=== PATIENT | female | born 2000 | race Caucasian/White ===

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

== ENCOUNTER → 2021-09-24 11:58 | Outpatient (CLI) | payer SELFPAY ==
[2021-09-24 14:10] LABS: Absolute Lymphocyte Count 0.54 X10^3/uL (0.83-4.51); Absolute Neutrophil Count 6.7 X10^3/uL (2.0-7.7); Basophil# 0.04 X10^3/uL; Basophil% 0.5 % (0-1); Eosinophil# 0.08 X10^3/uL; Hematocrit 34.8 % (37-47); Hemoglobin 10.1 g/dL (12.0-15.0); Lymphocyte # 0.54 X10^3/ul (0.83-4.51); Lymphocyte % 6.9 % (19-41); Mean Corpuscular Hgb 20.6 pg (27.0-32.0); Monocyte% 5.1 % (0-10); NRBC Flagged by Analyzer 0 % (0-5); Neutrophil # 6.71 X10^3/uL (2.7-7.7); Neutrophil % 86.2 % (47-70); POSITIVE DIFFERENTIAL YES; Platelet Count 216 K/mm3 (150-450); RBC Distribution Width CV 15.9 % (11.6-14.6); RBC Distribution Width SD 40.8 fl (35.1-43.9); White Blood Count 7.8 K/mm3 (4.4-11.0)
[2021-09-24 14:15] LABS: Differential Indicated SCAN CRITERIA MET
[2021-09-24 14:40] LABS: Hypochromasia 1+; Microcytosis 1+
[2021-09-24 14:56] LABS: Free T3 2.7 pg/mL (2.18-3.98); T4 Free Direct 0.94 ng/dL (0.76-1.46); Thyroid Stim Hormone (TSH) 0.75 uIU/mL (0.358-3.74)
== END ==
PROVIDERS: PCP Family Medicine; Referring Provider Family Medicine; Visit Provider Nurse Practitioner Family
DX: E03.9 Hypothyroidism, unspecified (principal); N92.0 Excessive and frequent menstruation with regular cycle
CPT/HCPCS: 36415; 84439; 84443; 84481; 85025

== ENCOUNTER 2021-12-24 14:45 | Outpatient (CLI) | payer SELFPAY ==
[2021-12-24 18:33] LABS: Thyroid Stim Hormone (TSH) 0.71 uIU/mL (0.358-3.74)
== END 2021-12-24 23:59 | disposition home or self-care (01) ==
PROVIDERS: PCP Family Medicine; Referring Provider Family Medicine; Visit Provider Family Medicine
DX: E03.9 Hypothyroidism, unspecified (principal)
CPT/HCPCS: 36415; 84443

== ENCOUNTER 2022-09-14 08:00 | Outpatient (RCR) | payer MEDICAID, SELFPAY ==
--- NOTE | 2022-09-14 10:05 | BH.SGPN.GN ---
Behaviors/Verbalizations/Mental Status: []Pt alert and oriented, casually dressed and groomed. Eye contact good. Motor activity appropriate. Speech within normal limits. Affect congruent, mood anxious and depressed. Thoughts linear, logical, no signs of hallucinations or delusions. Client Response/Progress/Benefit: []Pt new to IOP tx, responded well to session AEB contributing some to discussion, taking notes, and listening attentively to others. Group discussed the benefits of managed anger and anger as a secondary emotion. Pt completed worksheet on anger triggers and personal warning signs of anger. Pt identified their biggest triggers as feeling overstimulated, personal boundaries being violated, and when others talk too loudly. Appeared to benefit from increased knowledge of the anger cycle as well as personal triggers. Will continue IOP tx to improve mood stability, reduce depression, and reinforce use of healthy coping skills. Narrative Note: []
--- NOTE | 2022-09-14 11:10 | BH.SGPN.GN ---
Behaviors/Verbalizations/Mental Status: []Client alert and oriented, casually dressed and groomed. Eye contact fair. Motor activity appropriate. Speech within normal limits. Affect constricted, mood anxious. Thoughts linear, logical, no signs of hallucinations or delusions. Client Response/Progress/Benefit: []Pt was engaged throughout AEB contributing to group discussion and self-reflection. Group finished processing cues to anger worksheet. Pt contributed as group brainstormed healthy coping skills for better managing anger which included: music, walking/exercise, changing the environment, communicating with supports, and journaling. Pt reported she would be willing to start identifying her anger cycle to increase insight and improve her anger responses. Pt appeared to benefit from identifying different techniques to manage anger as well as gaining awareness of potential consequences of unmanaged anger. Pt's first day in IOP. Will continue IOP tx to improve daily functioning, increase healthy coping, and prevent decompensation.
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
--- NOTE | 2022-09-15 11:10 | BH.SGPN.GN ---
Behaviors/Verbalizations/Mental Status: [] Client alert and oriented, casually dressed and groomed. Eye contact fair.. Motor activity appropriate. Speech within normal limits. Affect constricted, mood dysthymic and anxious. Thoughts linear, logical, no signs of hallucinations or delusions. Client Response/Progress/Benefit: [] Client was an active participant in group discussions and activity. Attentive during psychoeducation. Client along with peers were able to identify several negatives on the picture given to the group. Client and peers also identified positives in the picture and made the connect that finding positives is much more difficult. Interactive discussion on the definition of perspective, how perspective is formed, and why perspective is important in treatment. Client along with peers also identified that perspective can either motivate and encourage treatment or be a barrier to receiving help. Client shared in her current perspective she believes the Bonnie is built against her which makes her feel hopeless about the future. Stated she also has the perspective that others are easily judgemental, which she reported makes her feel she can never do anything right. Will continue in IOP to improve functioning, increase healthy coping skills, build confidence, and prevent decompensation.
--- NOTE | 2022-09-15 11:16 | BH.SGPN.GN ---
Behaviors/Verbalizations/Mental Status: []Client alert and oriented, casually dressed and groomed. Eye contact good. Motor activity appropriate. Speech within normal limits. Affect congruent, mood anxious and depressed. Thoughts linear, logical, no signs of hallucinations or delusions Client Response/Progress/Benefit: []Client was attentive and contributed in small and larger group discussion. Client completed strengths exploration worksheet and identified personal strengths of curiosity, humor, patience, and open mindedness. With some assistance, Client able to acknowledge how these strengths are helping her and can continue to help client in their mental health journey. Shared wanting to focus on using positive affirmations to reinforce strength of love, specifically self-love. Benefited from identifying personal strengths and strategies for enhancing use of identified strengths. Client to continue IOP tx to promote use of healthy coping skills, reduce depression, and prevent decompensation. Narrative Note: []
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
[2022-09-15 11:53] VITALS: BP 140/83; PULSE 79
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
--- NOTE | 2022-09-15 12:10 | BH.DR.ITP ---
Initial Treatment Plan Patient Information Visit Information: ADMISSION DATE: EXPECTED LOS: 4-6 weeks Problems/Symptoms Problem #1:: depression Symptom:: Sadness, hopelessness, worthlessness, anhedonia, biological disruption of sleep, fatigue, decreased concentration, guilt, passive thoughts of , fleeting, passive suicidal ideation Problem #2:: Anxiety Symptom:: Worry, rumination
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
--- NOTE | 2022-09-16 09:01 | BH.SGPN.GN ---
Behaviors/Verbalizations/Mental Status: []Eye contact good, casually dressed, motor activity appropriate, speech normal rate and tone, mood anxious and depressed, constricted affect, thoughts linear and intact, no evidence of delusions or hallucinations. Reviewed pt's symptom tracker, suicidal ideation within pt baseline, denies any current plan, or intent as of this date 09/16/22. Client Response/Progress/Benefit: []Pt responded well to session, attentive and willing to share with the group. Pt reports feeling ?exhausted this morning. Shared this is due to struggling with staying up too late. Expressed difficulties adjusting to an earlier morning routine since beginning IOP tx. Receptive of psychoeducation on healthy sleep hygiene. Pt able to identify 2 mental health wins which included completing her morning hygiene routine despite running late, as well as continuing to spend time with her pets which help to improve her mood. Pt identified current stressor as an upcoming test for her job that she has been putting off studying for. Receptive of study tips provided by the group. Appearing to benefit from supportive feedback and reflecting on mental health wins, as well as skills to maintain progress. Pt to continue IOP tx to further improve healthy coping repertoire, improve mood, and prevent decompensation. Narrative Note: []
--- NOTE | 2022-09-16 10:01 | BH.SGPN.GN ---
Behaviors/Verbalizations/Mental Status: [] Client alert and oriented, casually dressed and groomed. Eye contact good. Motor activity appropriate. Speech within normal limits. Affect constricted, mood euthymic and anxious. Thoughts linear, logical, no signs of hallucinations or delusions. Client Response/Progress/Benefit: [] Client responded well to session AEB taking notes throughout and listening attentively to others. Client was attentive throughout group activity discussing famous individuals and how they overcame failure to be successful. Client helped group identify how fear of failure can impact mental health and relationships. Client discussed ways that FOF keep us from progressing towards goals we set for ourselves. Client participated in experiential activity, working with group members to problem solve. Appeared to benefit from increased knowledge of fear of failure. Will continue IOP tx to improve self-confidence, reduce distorted thinking patterns, and reduce avoidance. Narrative Note: []
--- NOTE | 2022-09-16 11:01 | BH.SGPN.GN ---
Behaviors/Verbalizations/Mental Status: [] Client alert and oriented, casually dressed and groomed. Eye contact good. Motor activity appropriate. Speech within normal limits. Affect constricted, mood euthymic. Thoughts linear, logical, no signs of hallucinations or delusions. Client Response/Progress/Benefit: [] Client responded well to session, engaged in the experiential activity and attentive throughout group processing. Client completed fear of failure worksheet and was able to identify thoughts and behaviors that reinforce personal fear of failure including family, anxiety, trauma, and societal expectations. Client participated in small group discussion regarding strategies to overcome fear of failure. Identified wanting to work on journaling taking baby steps, and making check points in progress. Appeared to benefit from increased knowledge of strategies to combat fear of failure and gaining self-awareness. Client will continue IOP tx to increase self worth and to reduce anxiety and avoidance. Narrative Note: []
--- NOTE | 2022-09-21 09:00 | BH.SGPN.GN ---
Behaviors/Verbalizations/Mental Status: []Eye contact is good. Motor activity is appropriate. Appearance is casual. Speech is Appropriate. Mood is anxious. Affect is flat. Thoughts are linear and logical. No evidence of psychosis. Reviewed daily check in sheet and pt's scores were within pt's baseline. Client Response/Progress/Benefit: [] Pt responded well to session, quiet, but sharing when prompted. Pt reports feeling disappointed in herself this morning as pt waited until the last minute to complete a paper. Pt shared she often procrastinates which then leads to an increase in anxiety and then frustration. Pt stated being done with her final is a positive, but pt is still exhausted from yesterday. Pt identified another win as not spending money this morning when she wanted to. 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 Pt appeared to benefit from connecting with peers and reflecting on her wins. Pt will continue IOP tx to prevent decompensation, increase use of healthy coping skills, and improve distress tolerance. Narrative Note: []
--- NOTE | 2022-09-21 10:10 | BH.SGPN.GN ---
Behaviors/Verbalizations/Mental Status: [] Eye contact is poor. Motor activity is appropriate. Appearance is casual. Speech is Appropriate. Mood is depressed. Affect is flat. Thoughts are linear and logical. No evidence of psychosis. Client Response/Progress/Benefit: [] Pt had limited participation in group discussions. Active participant in experiential activity. Attentive during psychoeducation. Attentive as peers shared types of social supports which included; family, friends, PCP, mental health providers, support groups, pets, ourselves, community classes, etc. Attentive as group identified mental health benefits of social support which patient and group identified as; it can help with emotional release, help one to feel heard, validation, distraction, they can encourage us, provide motivation, provide accountability, and boost our mood. Attentive as peers worked together to identify obstacles to utilizing support which included; feeling like one doesn't deserve support, past negative experiences, cognitive distortions, and avoidance/mood. Benefited from increased awareness of mental health benefits of social support and obstacles that prevent one from utilizing support. Will continue in IOP to maintain safety, increase healthy coping skills, and prevent decompensation. Narrative Note: []
--- NOTE | 2022-09-22 09:05 | BH.SGPN.GN ---
Behaviors/Verbalizations/Mental Status: [] Eye contact is good. Motor activity is appropriate. Appearance is casual. Speech is Appropriate. Mood is depressed. Affect is flat. Thoughts are linear and logical. No evidence of psychosis. Reviewed daily check in sheet and pt reports 3/5 for suicidal ideation and 1/5 for intent. Will meet with counselor for risk screen. Client Response/Progress/Benefit: [] Pt participated when prompted. Disengaged with group with poor eye contact. Daily symptom tracker notes 3/5 for depression and irritability. 2/5 for self-harm urges. Shared with the group that she has been struggling this week, however a win for today was ?brushing my teeth?. Shared struggles with completing ADLs. . Believes that she is ?dissociating? more than usual and is sleeping more as well. Mentioned that trigger is her schoolwork as this week is finals week. Group provided feedback on grounding and mindfulness skills which can help with dissociation thoughts which was beneficial. Will continue in IOP to maintain safety, prevent decompensation, and stabilize mood. ? Narrative Note: []
--- NOTE | 2022-09-22 10:05 | BH.COMM ---
Communication Note - Communication with Client Communication Note: This nurse met with client at this time to discuss lab results, low vitamin D and elevated TSH. Discussed Dr. Wong reviewed values and was ordering Vitamin D supplement. Discussed TSH being elevated and client being ordered Levothyroxine with low compliance. Discussed the possible health dangers of untreated hypothyroidism (heart problems, neuropathy, infertility, coma) and handout given. Client voices understanding of importance of taking medications and denies questions. Discussed following up with her PCP about TSH and Vitamin D after she is finished with IOP.
--- NOTE | 2022-09-22 10:10 | BH.SGPN.GN ---
Behaviors/Verbalizations/Mental Status: []Pt alert and oriented, neatly dressed and groomed. Eye contact good. Motor activity appropriate. Speech within normal limits. Affect flat, mood exhausted. Thoughts linear, logical, no signs of hallucinations or delusions. Client Response/Progress/Benefit: []Pt was an engaged participant in group discussions. Participated with peers in experiential activity. Pt participated in an interactive discussion with peers in which they worked together to define what coping skills are. Group then identified unhealthy coping skills which included; isolating, sleeping to avoid, drugs and alcohol, and constant distractions. Pt displayed insight that she struggles with turning to quick fixes like shopping and ?chronic distractions? to avoid problems. Reflected that this adds more stress to pt?s life and worsens mental health symptoms. Benefited from increased awareness and education the benefits of having a healthy coping repertoire and consequences of unhealthy coping on mental health and relationships. Will continue IOP tx to prevent decompensation, reduce avoidance, and increase knowledge of healthy coping skills. ? Narrative Note: []
--- NOTE | 2022-09-22 11:10 | BH.SGPN.GN ---
Behaviors/Verbalizations/Mental Status: []Client alert and oriented, casually dressed and groomed. Eye contact fair. Motor activity appropriate. Speech within normal limits, quiet. Affect constricted, mood anxious. Thoughts linear, logical, no signs of hallucinations or delusions Client Response/Progress/Benefit: []Client responded well to session, taking notes and contributing. Group discussed the different categories of coping skills which included distraction, emotional release, grounding, self-love, and thought challenging. Client participated in creating a coping skills ?menu? from the five categories of coping skills. Client's coping skill menu included: journaling, 5 senses, squeezing things, exercising, and redirecting thoughts. Appeared to benefit from increasing repertoire of healthy coping skills. Will continue IOP to increase healthy coping, increase confidence, and prevent decompensation.
--- NOTE | 2022-09-23 11:15 | BH.SGPN.GN ---
Behaviors/Verbalizations/Mental Status: []Client alert and oriented, casually dressed and groomed. Eye contact fair. Motor activity appropriate. Speech within normal limits. Affect constricted, mood anxious. Thoughts linear, logical, no signs of hallucinations or delusions. Client Response/Progress/Benefit: []Client responded well to session, taking notes and participating in worksheet discussion. Client connected with the zones of action/change and reported that making sustainable change comes from stepping out of one?s comfort zone into the learning zone. Client set a goal to gain control over boredom/not having any hobbies. Client reported her goal is to go to gym for one hour at least once a week. Client identified telling someone about goal, getting gym outfits, and writing in journal as supports needed to help her accomplish goal. Appeared to benefit from identifying a small goal to benefit mental health. Will continue IOP tx to increase healthy coping, decrease depression, and prevent decompensation.
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
--- NOTE | 2022-09-27 09:00 | BH.SGPN.GN ---
Behaviors/Verbalizations/Mental Status: []Pt alert and oriented, casually dressed and groomed. Eye contact good. Motor activity appropriate. Speech within normal limits. Affect congruent, mood euthymic and anxious. Thoughts linear, logical, no signs of hallucinations or delusions. Reviewed pt?s symptom tracker, no risk for suicidal ideation, plan, or intent as of 09/27/22 Client Response/Progress/Benefit: []Pt responded well to session, attentive and receptive to feedback. Pt reports feeling cautiously hopeful this morning as pt is stressed about her grades from her finals, but she is happy that she has time off from school. Pt shared she wants to get into exercising while on winter break, but she has a lot of fear of judgement. The group helped challenge pt's perspective and gave ideas for exercise. Pt appeared to benefit from feedback and shared willingness to try ideas. Pt will continue IOP tx to prevent decompensation, improve daily functioning, and reduce avoidance. Narrative Note: []
--- NOTE | 2022-09-27 10:15 | BH.SGPN.GN ---
Behaviors/Verbalizations/Mental Status: []Client alert and oriented, casually dressed and groomed. Eye contact good. Motor activity appropriate. Speech within normal limits. Affect congruent, mood anxious, depressed. Thoughts linear, logical, no signs of hallucinations or delusions. Client Response/Progress/Benefit: []Client receptive to session AEB contributing some to discussion, which is progress for pt, as well listening attentively to others. Taking notes. Worked with group to brainstorm the positive and negative aspects of stress on physical and mental health. Group did well to identify the benefits of stress as well as the impact of distress on performance, relationships, and mental health. 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 Client reports when the stress overflows client reacts with increased sleep, irritability, disassociating, and increased spending. Client seemed to benefit from increased awareness of current stressors and impact stress has on mental health. Recommended to continue IOP tx to stabilize moods, improve stress management, and prevent decompensation. Narrative Note: []
--- NOTE | 2022-09-27 11:15 | BH.SGPN.GN ---
Behaviors/Verbalizations/Mental Status: []Pt alert and oriented, casually dressed and groomed. Eye contact good. Motor activity appropriate. Speech within normal limits. Affect constricted, mood anxious. Thoughts linear, logical, no signs of hallucinations or delusions. Client Response/Progress/Benefit: []Pt participated at times during group discussions. Attentive during psychoeducation on the 4 A's of Coping with Stress (Avoid, Alter, Adapt, Accept). Participated in experiential activity in which group members had to utilize stress management skills in the moment. Pt did well to problem-solve and express ideas to peers. Pt engaged in review of the 4 A?s and picked wanting to work on adapting her outlook by realizing that not everyone hates her. Benefited from processing in the moment stress management strategies and identifying new ways to cope with stress. Will continue in IOP tx to prevent decompensation, improve self-worth, and increase use of healthy coping skills.
--- NOTE | 2022-09-28 09:05 | BH.SGPN.GN ---
Behaviors/Verbalizations/Mental Status: [] Eye contact is poor. Motor activity is appropriate. Appearance is casual. Speech is Appropriate. Mood is depressed. Affect is congruent. Thoughts are linear and logical. No evidence of psychosis. Reviewed daily check in sheet and pt reports 2/5 for suicidal ideations and 0/5 for intent. Client Response/Progress/Benefit: [] Pt participated when prompted. Attentive. Daily symptom tracker notes 3/5 for depression and 2/5 for self-harm urges. Mental health win was stepping outside her comfort zone at the gym yesterday. Has returned to exercise which she hopes will improve her mood. Emotion for today is vibing. She is stressed about working this evening and shared a little about her job. Pt's check-in was mainly superficial today. Benefited from group support, encouragement, and feedback. Will continue in IOP to maintain safety, prevent decompensation, and to increase healthy coping. Narrative Note: []
--- NOTE | 2022-09-28 10:15 | BH.SGPN.GN ---
Behaviors/Verbalizations/Mental Status: []Pt alert and oriented, casually dressed and groomed. Eye contact good. Motor activity appropriate. Speech within normal limits. Affect congruent, mood euthymic and tired. Thoughts linear, logical, no signs of hallucinations or delusions. Client Response/Progress/Benefit: []Pt participated in group discussion. Group worked together to identify benefits of healthy relationships which included improves mental health, encouragement, motivation, accountability, validation, connection, someone to share experiences with, and support during challenges. Pt shared she has personally found a healthy relationship, ?but it took a lot of work.? Group identified factors that lead to unhealthy relationships which included financial stress, lack of communication, and ?one person having issues they won?t address.? Actively participated in group experiential activity and effectively communicated with peers. Benefited from increased insight and awareness of benefits of healthy relationships and factors that contribute to unhealthy relationships. Will continue in IOP to promote mood stability, reduce avoidance, and improve self-compassion. Narrative Note: []
--- NOTE | 2022-09-28 14:18 | BH.MDN ---
Multi-Disciplinary Note - Note 45-min Individual Time Started:: 11:19 Date: 09/28/22 Purpose of session/treatment goals addressed:: To work on goal #2 of pt's tx plan. Eye Contact:: Good Motor Activity:: Appropriate Appearance:: Casual Speech:: Appropriate Mood:: Anxious, Dysthymic Affect:: Congruent Thoughts:: Linear, Logical, No evidence of hallucinations/delusions noted Staff Interventions:: psychoeducation on: - exposure therapy in addressing and combating anxiety maintenance cycles, CBT techniques, strengths perspective, taught coping skills Client Response:: Pt responded well to session, open to meeting therapist. Pt shared she feels a lot less stressed now that finals are over and she is able to spend less time ruminating on school assignments. Pt discussed that her anxiety is often worse when in situations she feels she needs to perform well, such as on school assignments and in social settings. Pt reports she worries about messing up, looking like she doesn?t know what she?s doing, and saying something ?weird? and ultimately puts off engaging with others or completing her assignments as a result. Able to recognize this reinforces fears that others will think she is ?lazy? or ?doesn?t care?. Expressed wanting to work on breaking the anxiety maintenance cycle and shared finding success in completing her recent goal of getting back into going to the gym. Pt shared doing the ?anxious thing? and working out despite feeling others were watching her helped to improve her mood and sense of accomplishment. Receptive of discussion on exposure therapy and introduction to fear ladders. Pt reports plans to write down potential anxiety provoking scenarios she would like to begin addressing on fear ladder for homework. Additional goal identified as beginning an accomplishment bullet journal. Risks/Concerns:: Pt denies active suicidal ideations, plan, or intent as of 09/28/22. Pt is future oriented. Progress Toward Goals/Plan:: Pt continues to make progress towards tx goals AEB his consistent attendance and engagement. Pt continues to report anxiety and depression, but shared coming to group is helping and she is beginning to make progress with reengaging in activities she enjoys outside of the group environment. Pt connected with the negative thoughts and unhealthy coping skills associated with depressive and anxious maintenance cycles. Pt will continue IOP tx to prevent decompensation, reduce negative thinking patterns, and improve overall functioning.
--- NOTE | 2022-09-29 09:00 | BH.SGPN.GN ---
Behaviors/Verbalizations/Mental Status: [] Eye contact is fair. Motor activity is appropriate. Appearance is casual. Speech is Appropriate. Mood is euthymic. Affect is constricted. Appered tired and reported feeling exhausted. Thoughts are linear and logical. No evidence of psychosis. Reviewed daily check in sheet and no reports of suicidal ideations or intent. Client Response/Progress/Benefit: []Pt responded well to session AEB listening attentively to others and sharing thoughts and feelings. Pt identified mental health positive as coming to IOP today despite feeling exhausted. Pt reported additional positive as going to the gym yesterday. Pt stated she did go too hard while at the gym and is feeling very sore today. Pt reported she will be taking a rest day today, but is happy that she has been more consistent with getting to the gym. Pt reported current stressor is wanting to get into a specific program at school, but feeling anxious she won't actually like the program. Pt seemed to benefit from support from peers. Pt to continue IOP to increase healthy coping, improve confidence, and prevent decompensation. Narrative Note: []Behaviors/Verbalizations/Mental Status: [] Eye contact is fair. Motor activity is appropriate. Appearance is casual. Speech is Appropriate. Mood is euthymic. Affect is constricted. Appered tired and reported feeling exhausted. Thoughts are linear and logical. No evidence of psychosis. Reviewed daily check in sheet and no reports of suicidal ideations or intent. Client Response/Progress/Benefit: []Pt responded well to session AEB listening attentively to others and sharing thoughts and feelings. Pt identified mental health positive as coming to IOP today despite feeling exhausted. Pt reported additional positive as going to the gym yesterday. Pt stated she did go too hard while at the gym and is feeling very sore today. Pt reported she will be taking a rest day today, but is happy that she has been more consistent with getting to the gym. Pt reported current stressor is wanting to get into a specific program at school, but feeling anxious she won't actually like the program. Pt seemed to benefit from support from peers. Pt to continue IOP to increase healthy coping, improve confidence, and prevent decompensation. Narrative Note: []Behaviors/Verbalizations/Mental Status: [] Eye contact is fair. Motor activity is appropriate. Appearance is casual. Speech is Appropriate. Mood is euthymic. Affect is constricted. Appered tired and reported feeling exhausted. Thoughts are linear and logical. No evidence of psychosis. Reviewed daily check in sheet and no reports of suicidal ideations or intent. Client Response/Progress/Benefit: []Pt responded well to session AEB listening attentively to others and sharing thoughts and feelings. Pt identified mental health positive as coming to IOP today despite feeling exhausted. Pt reported additional positive as going to the gym yesterday. Pt stated she did go too hard while at the gym and is feeling very sore today. Pt reported she will be taking a rest day today, but is happy that she has been more consistent with getting to the gym. Pt reported current stressor is wanting to get into a specific program at school, but feeling anxious she won't actually like the program. Pt seemed to benefit from support from peers. Pt to continue IOP to increase healthy coping, improve confidence, and prevent decompensation. Narrative Note: []Behaviors/Verbalizations/Mental Status: [] Eye contact is fair. Motor activity is appropriate. Appearance is casual. Speech is Appropriate. Mood is euthymic. Affect is constricted. Appered tired and reported feeling exhausted. Thoughts are linear and logical. No evidence of psychosis. Reviewed daily check in sheet and no reports of suicidal ideations or intent. Client Response/Progress/Benefit: []Pt responded well to session AEB listening attentively to others and sharing thoughts and feelings. Pt identified mental health positive as coming to IOP today despite feeling exhausted. Pt reported additional positive as going to the gym yesterday. Pt stated she did go too hard while at the gym and is feeling very sore today. Pt reported she will be taking a rest day today, but is happy that she has been more consistent with getting to the gym. Pt reported current stressor is wanting to get into a specific program at school, but feeling anxious she won't actually like the program. Pt seemed to benefit from support from peers. Pt to continue IOP to increase healthy coping, improve confidence, and prevent decompensation. Narrative Note: []
--- NOTE | 2022-09-29 10:05 | BH.SGPN.GN ---
Behaviors/Verbalizations/Mental Status: []Eye contact is good. Motor activity is appropriate. Appearance is casual. Speech is Appropriate. Mood is depressed and anxious. Affect is congruent. Thoughts are linear and logical. No evidence of psychosis. Client Response/Progress/Benefit: []Pt participated during the group discussion. Attentive during psychoeducation and actively engaged during experiential activity. Participated during interactive discussion on aspects of fixed mindset. Group identified several aspects of fixed mindset which included; inflexible, belief that one cannot grow, absolute thinking, and all of one's skills, traits, and behaviors are set in stone and can't change. Pt did well in experiential activity in which they were given a seemingly impossible task and were asked to identify fixed thoughts that arose. Group then identified personal examples of fixed thinking in which pt shared personal fixed thoughts as: ?I?m not meant to live in this world?, ?I?m never going to find a job I can do?, ?I?m always going to hate myself and hate living?. Benefited from increased understanding of personal fixed mindsets and how they can impact mental health. Will continue in IOP to prevent decompensation, continue to improve mood stability, and promote self-care and self-compassionate talk. Narrative Note: []
--- NOTE | 2022-09-29 11:05 | BH.SGPN.GN ---
Behaviors/Verbalizations/Mental Status: []Pt alert and oriented, casually dressed and groomed. Eye contact fair-closed at times. Motor activity appropriate. Speech within normal limits. Affect congruent, mood euthymic and tired. Thoughts linear, logical, no signs of hallucinations or delusions. Client Response/Progress/Benefit: []Pt engaged during activity and discussion AEB providing some input, connecting with peers, as well as taking notes throughout. Pt did well to engage as group worked on identifying characteristics and benefits of adopting a growth mindset. Worked with fellow participants in reframing the example fixed thoughts into growth mindset thoughts. Reframed personal fixed thought of ?I?m always going to hate myself and hate living? with growth mindset thought of ?I?m still learning about life and there?s a chance I can get better.? Benefitted from discussing benefits of growth mindset and brainstorming strategies for prompting growth-mindset. Pt did start exercising this week which is progress. Will continue IOP tx to reduce avoidance, increase self-esteem, and improve daily functioning. ? Narrative Note: []
--- NOTE | 2022-09-29 11:44 | PCM.BH.PN ---
Progress Note Progress Note: History of Present Illness/Interim History: Patient is a 21-year-old single female with a history of depression and anxiety who is seen in follow-up at the [facility] behavioral health IOP program. I last saw the patient 2 weeks ago and at that time we discussed the importance of compliance with her thyroid and psychiatric medications and discussed strategies to improve her compliance. The patient's TSH and vitamin D levels were checked and they were found to be low 2 weeks ago. According to the staff the patient has been making good efforts to participate and engage in the program. The patient feels she is benefiting from the program however does admit that she has been only taking her medication daily for 1 week. She is still depressed and overall essentially unchanged in terms of her symptoms. She still admits to hopelessness worthlessness and guilt. She is anhedonic and tired all the time. She has passive thoughts of and daily, passive suicidal ideation but has no plan for suicide. She still denies homicidal ideation, hallucinations or delusions. She denies any history of or thoughts of self-harm. Patient ran out of Wellbutrin XL this morning but does say she has a refill and will try to pick it up today. Current Psychiatric Medications: [] Same medication doses as last appointment but the patient has resumed taking them as she had not taken them for a while. She has been taking them daily now for about 1 week or since about September 22, 2022. Mental Status Examination: [] Patient is a 21-year-old female who appears normal for stated age and is casually dressed and groomed with good hygiene. She has no psychomotor agitation or retardation and is ambulatory with a normal gait. Eye contact is good and speech is normal rate and rhythm and fluent with no pressure. Mood is depressed. Affect is constricted. Thought process is goal-directed and organized. Thought content: There is evidence of passive thoughts of and daily, passive suicidal ideation. There is no evidence of plan for suicide, active suicidal ideation, homicidal ideation, hallucinations or delusions. Reality testing is intact. Judgment is intact. Insight is limited but some present. Impulsivity is high. Diagnoses: [] 1. Major depressive disorder, recurrent, severe without psychosis 2. History of dysthymic disorder 3. Generalized anxiety disorder 4. Strong cluster B traits 5. History of noncompliance with medication 6. Hypothyroidism 7. Primary support, work and school issues Plan: [] The patient will continue the IOP program at [facility] as the structure, support, education and group therapy will hopefully prevent worsening of the patient's symptoms that might require hospitalization. She felt safe during the interview and if it anytime she does not feel safe she will let us know or go to the emergency room. The risks, options, possible complications and side effects of the medications were again discussed with the patient and she understands and accepts these. Again we discussed the importance of compliance with medications and ways to encourage this. Patient understands that since she is only been taking her medication daily for 1 week that she may not see much benefit for another week or 2. She will continue to follow-up with her outpatient providers and I will see the patient in follow-up on a regular basis while she is in the IOP program.
--- NOTE | 2022-10-06 10:08 | BH.SGPN.GN ---
Behaviors/Verbalizations/Mental Status: []Pt alert and oriented, casually dressed and groomed. Eye contact good. Motor activity appropriate. Speech within normal limits. Affect flat, mood depressed. Thoughts linear, logical, no signs of hallucinations or delusions. Client Response/Progress/Benefit: []Pt participated at times during the group discussions. Participated during interactive discussion on defining conflict (internal/external) and possible benefits to conflict. Attentive during psychoeducation on conflict styles and engaged during small group activity in which peers identified the benefits and consequences to each conflict style. Pt identified that their primary conflict styles as collaborating when others are and avoiding when pt feels defensive. Pt shared this leads to ?feeling like people don?t care.? Benefited from increased awareness of the impact of conflict styles in mental health. Will continue in IOP to reduce negative thinking patterns, improve motivation, and reduce isolation. Narrative Note: []
--- NOTE | 2022-10-06 11:08 | BH.SGPN.GN ---
Behaviors/Verbalizations/Mental Status: []Pt alert and oriented, casually dressed and groomed. Eye contact good. Motor activity appropriate. Speech within normal limits. Affect constricted, mood tired. Thoughts linear, logical, no signs of hallucinations or delusions. Client Response/Progress/Benefit: []Pt engaged in session AEB contributing to discussion and engaging in activity. Pt did well to review current conflict style and its impact on mental health. Attentive and taking notes during discussion on strategies for more effectively managing conflict in personal life.? Pt participated in activity and did well to talk through choices with peers. Pt given handout on fair fighting rules and identified that they want to work on expressing her feelings with words instead of avoiding. Appeared to benefit from gaining strategies to help pt better manage conflict. Will continue IOP tx to prevent decompensation, improve daily functioning, and reduce isolation. ? Narrative Note: []
--- NOTE | 2022-10-06 14:42 | BH.TPR ---
Treatment Plan Review Date of Admission:: 09/14/22 Date of Treatment Plan Review:: 10/06/22 Admitting Diagnoses:: 1. Major depressive disorder, recurrent, severe without psychosis. 2. History of dysthymic disorder. 3. Generalized anxiety disorder. 4. Strong cluster B traits. 5. History of noncompliance with medication. 6. Hypothyroidism Current Diagnoses:: 1. Major depressive disorder, recurrent, severe without psychosis. 2. History of dysthymic disorder. 3. Generalized anxiety disorder. 4. Strong cluster B traits. 5. History of noncompliance with medication. 6. Hypothyroidism Patient's Response to Treatment:: Client is responding well to IOP tx AEB her overall symptoms reducing by 20%. Client's depression has decreased by 25%, anxiety by 11%, and SI by 33% per DSM-5 assessment since [facility] admission. Client is more quiet than peers, but will occasionally share during group session. Client is improving in consistency with coping skill application and is engaging more in both group and individual sessions. Client's attendance is mostly consistent, though she has missed a few sessions due to oversleeping. Client self-reports struggling to be medication compliant. Status of Current Problems and Symptoms: Client continues to report mild to moderate symptoms of depression and anxiety. Client's depressive and anxious symptoms are still reduced compared to admission to [facility]. Client continues to report limited support and family conflict that impacts client's mental health. Client's SI has decreased, but she still occasionally gets fleeting thoughts of self-harm and passive SI however denies urges or intent to act on these thoughts. Problem #1 Problem Name:: Depression, SI, Hopelessness Status of Goals:: Objective 1- complete with ongoing work encouraged. Client?s DSM-5 scores for depression have decreased by 25% and SI has decreased by 33%. Client has been using opposite action, self-care, and going to the gym to cope with depression. Ongoing work encouraged as client reports this week she has felt down and depressed more than half the days. This is likely due to family stressors. Objective 2- progress noted, ongoing work encouraged. Client has been making and accomplishing small SMART goals however in the past week recently reports reduced motivation and inconsistency in follow through. Client's family tends to be a trigger and client isolates as a result, so continuing to work on this goal will be beneficial. Team Recommendations:: Treatment team recommends that client continue working on boundary setting with family, challenging negative self-talk, and increasing self-care. Problem #2 Problem Name:: Anxiety, Rumination Status of Goals:: Objective 1- complete with ongoing work encouraged. Client?s anxiety has decreased by 11% since admission. Client has been using opposite action and self-care to manage anxiety. Client is currently working on boundary setting and self-advocacy with family, which could temporarily spike anxiety. Objective 2- partially complete. Client has learned about cognitive distortions and with help can combat negative thoughts. Client can continue to improve on challenging negative, anxious thoughts without external support. Team Recommendations:: Treatment team recommends client to increase thought challenging and self-care skills
--- NOTE | 2022-10-07 14:40 | BH.COMM ---
Communication Note - Communication with Client Communication Note: Pt scheduled to meet with therapist and attend group however did not show or return therapist calls. Followed-up with pt's mother who indicated pt was at work and would return to group next week.
== END 2022-10-09 23:59 ==
LOC: BHIOP 08:00
PROVIDERS: PCP Family Medicine; Referring Provider Psychiatry & Neurology Psychiatry; Visit Provider Psychiatry & Neurology Psychiatry
DX: F33.2 Major depressive disorder, recurrent severe without psychotic features (principal); F34.1 Dysthymic disorder; F41.1 Generalized anxiety disorder; Z91.14 Patient's other noncompliance with medication regimen; E03.9 Hypothyroidism, unspecified; Z79.899 Other long term (current) drug therapy
CPT/HCPCS: 90792; 99213; H2012; H2020; S9480; T1002; 90832; 90834; 90837

== ENCOUNTER → 2022-09-16 | Outpatient (CLI) | payer MEDICAID, SELFPAY ==
[2022-09-16 14:50] LABS: Vitamin D,25 Hydroxy 9.8 ng/mL
== END | disposition home or self-care (01) ==
LOC: LAB 12:12
PROVIDERS: PCP Family Medicine; Referring Provider Psychiatry & Neurology Psychiatry; Visit Provider Psychiatry & Neurology Psychiatry
DX: E55.9 Vitamin D deficiency, unspecified (principal)
CPT/HCPCS: 36415; 82306; 84443

== ENCOUNTER 2022-10-12 07:30 | Outpatient (RCR) | payer MEDICAID, SELFPAY ==
[2022-10-10 00:37] VITALS: BP 140/83; PULSE 79
--- NOTE | 2022-10-13 11:10 | BH.SGPN.GN ---
Behaviors/Verbalizations/Mental Status: []Client alert and oriented, casually dressed and groomed. Eye contact fair. Motor activity appropriate. Speech within normal limits. Affect constricted. Mood depressed. Thoughts linear, logical, no signs of hallucinations or delusions. Client Response/Progress/Benefit: []Client responded well to session as evidenced by client listening attentively to others and providing strategies during discussion. Client identified her warning signs for crisis and gained further awareness of earliest warning signs. Client created a crisis action plan to help client better manage warning signs for crisis. Client?s action plan for lack of motivation included: do one task at a time, use opposite action to get out of bed, and think about things she wants to accomplish. Client appeared to benefit from creating a crisis action plan and increasing self-awareness. Client to continue IOP tx to increase consistent use of healthy coping skills, challenge negative thought patterns, and prevent decompensation.
--- NOTE | 2022-10-13 12:08 | PCM.BH.PN_ITS ---
Progress Note Progress Note: History of Present Illness/Interim History: The patient is a 21-year-old single female with a history of depression and anxiety who is seen in follow-up at the [facility] behavioral health IOP program. I last saw the patient 2 weeks ago and at that time discussion was again had about the need for compliance with medications. Patient has had somewhat inconsistent attendance in the last week or so possibly due to the fact that her father has relapsed on alcohol use over the holiday. The patient's remains depressed but says she has less hopelessness now. She admits that she stopped her meds for 10 or 12 days out of the last 14 and restarted them possibly 2 or 3 days ago. So the patient continues to be noncompliant with medications. This includes her thyroid medications. She remains fatigued and has some passive thoughts of . She still has passive suicidal ideation but it is only every other day now instead of every day. She denies any plan for suicide. She has had some thoughts of self-harm when she is very stressed and has thoughts of punching her self when stressed. Patient denies active suicidal ideation, homicidal ideation, hallucinations or delusions. Current Psychiatric Medications: [] Patient is on the same medication doses as last appointment which includes Wellbutrin XL 150 mg p.o. daily and Zoloft 50 mg p.o. daily and levothyroxine 100 mg p.o. daily. But the patient remains noncompliant with them. She is also supposed to be taking vitamin D2 50,000 units weekly that we added after checking blood work. Mental Status Examination: [] Patient is a 21-year-old female who appears normal for stated age and is casually dressed and groomed with good hygiene. She is ambulatory with a normal gait and has no psychomotor agitation or retardation. Eye contact is good and speech is normal rate and rhythm and fluent with no pressure. Mood is depressed. Affect is mildly constricted. Thought process is goal-directed and organized. Thought content: There is evidence of passive thoughts of and occasional passive suicidal ideation. There is evidence of thoughts of self-harm when stressed. There is no evidence of active suicidal ideation, homicidal ideation, hallucinations or delusions. Diagnoses: [] 1. Major depressive disorder, recurrent, severe without psychosis 2. History of dysthymic disorder 3. Generalized anxiety disorder 4. Strong cluster B traits 5. Noncompliance with medication 6. Hypothyroidism 7. Primary support, work and school Plan: [] The patient will continue the IOP program at [facility] as the structure, support, education and group therapy will hopefully prevent worsening of the patient's symptoms that might require hospitalization. She felt safe during the interview and if it anytime she does not feel safe she will let us know or go to the emergency room. The risk, options, possible complications and side effects of the medications were again discussed with the patient and she understands and accepts these. Discussed again also the importance of compliance with medications and strategies to encourage this which she also will discuss with her staff therapist. Patient understands that since she only takes her medication for a day or 2 at a time she gets some initial side effects but they never gives it time to wear off because she stopped the medication 1 or 2 days after starting it. She will continue to follow-up with her outpatient providers and I will see the patient in follow-up while she is in the IOP program.
--- NOTE | 2022-10-13 14:45 | BH.MDN ---
Multi-Disciplinary Note - Note 45-min Individual Time Started:: 10:20 Date: 10/13/22 Purpose of session/treatment goals addressed:: To work on goals #1 & #2 of pt's tx plan. Eye Contact:: Good Motor Activity:: Appropriate Appearance:: Casual Speech:: Appropriate, Soft Mood:: Anxious, Depressed Affect:: Congruent Thoughts:: Linear, Logical, No evidence of hallucinations/delusions noted Staff Interventions:: motivational interviewing - decisional balance on current living situation, strengths perspective, completed risk assessment / safety planning - discussed plan for maintaining safety and coping in healthy ways if father is drinking, as well as plans for pt to have a safe place to go,, goal setting - created medication log Client Response:: Pt responded well to session, open to meeting therapist. Pt shared she feels more anxious and stressed in the last few days due to a recent stressor. Disclosed beliefs that her father has relapse on alcohol and described finding a bottle of Nikhil Kowalski in the garage. Shared frustration as pt attempted to discuss her concerns with her mother whom pt feels minimized and refused to believe pt. Went on to discuss that the home environment often becomes increasingly tense when her father is drinking, as he is more irritable and says mean things to pt and her mother. Pt has insight that her fear of her father relapsing directly impacts her own mental health, as she begins fixating on this and looking for any pieces of evidence confirming her suspicions. Additionally, this fear aids in maintaining pt?s depression as she isolates in her room to avoid her father and often ends up sleeping. Completed a cost/benefit analysis of continuing to live with her parents vs. finding her own apartment. Pt reports financially it would be difficult to move out until she completes college. Shared she is able to spend time at her boyfriend?s house when things feels too uncomfortable or potentially unsafe, but that she does not like to do this unless she needs to. Pt described not wanting to be a burden or burn him out as he is pt primary support. Shared feeling safe in her home at this time and would be able to stay with either her boyfriend or brother if needed. Open to discussion reviewing the importance of advocating for her needs with her mother and finding ways to adapt her environment in order to promote mental wellness and prevent maintaining depression. Pt identified that she could place a door on the bottom of the stay to limit how much she hears her father?s comments, she could also decorate the room with things that make her smile and turn on lights more often. Pt and therapist discussed importance of continuing to engage in activities that release endorphins, such as exercise. Pt reports struggling with energy and motivation. Receptive of discussion on behavior activation, as well as reviewing the importance of consistently taking her thyroid medications as this directly impacts energy levels. Pt willing to complete a daily medication log to help hold herself accountable. Risks/Concerns:: Pt denies active suicidal ideations, plan, or intent as of 10/13/22. Does report increased depression and hopelessness associated with father?s recent relapse. Will continue to monitor and promote healthy emotion regulation and self-care skills. Pt is future oriented. Reports she is safe in her home. Progress Toward Goals/Plan:: Some regression as pt reports increased depression and anxiety associated with her father's recent relapse on alcohol. Shared she has been isolating more and feeling less motivated and hopeless as a result. Discussed increased rumination and difficulties focusing on things outside of suspecting her father's drinking. Insight on effects this has had on her mental health and ability to engage in self-care activities. Reports inconsistency in medication compliance as well. Pt will continue IOP tx to prevent decompensation, continue to encourage self-advocacy and healthy boundary setting, reduce negative thinking patterns, and improve overall functioning. Time Stopped:: 11:07
--- NOTE | 2022-10-14 09:03 | BH.SGPN.GN ---
Behaviors/Verbalizations/Mental Status: []Eye contact fair to good, casually dressed, motor activity appropriate, speech normal rate and tone, mood anxious and euthymic, congruent affect, thoughts linear and intact, no evidence of delusions or hallucinations. Reviewed pt's symptom tracker, reports suicidal ideation within pt baseline and denies active plan or intent as of this date 10/14/22. Client Response/Progress/Benefit: []Pt responded well to session, attentive and providing some supportive feedback throughout. Pt reports feeling nervous this morning as she has plans to meetup with a friend she has not seen in awhile. Identified that although it is a stressor, it is also a current mental health win and is aiding in improving client?s social support network. Receptive of supportive feedback on how to manage anxiety prior to meeting up with her friend. Additional win includes following through with spending time with another support she has not seen in awhile and reminding herself of the benefits of doing so. This is progress as pt self-reports struggling with isolation. Went on to discuss continued anxiety about ongoing car issues and was able to identify several skills for managing associated anxiety. Recommended continued IOP tx continue to improve mood stability and application of anxiety management skills, as well as prevent decompensation. Narrative Note: []
--- NOTE | 2022-10-14 10:05 | BH.SGPN.GN ---
Behaviors/Verbalizations/Mental Status: []Pt alert and oriented, neatly dressed and groomed. Eye contact good. Motor activity appropriate. Speech within normal limits. Affect constricted, mood tired. Thoughts linear, logical, no signs of hallucinations or delusions. Client Response/Progress/Benefit: []Pt was an active participant in group discussions. Attentive during psychoeducation and participated in interactive discussions in which group defined self-care, discussed the benefits to self-care, and identified common myths surrounding self-care. Pt shared that self-care can increase focus and motivation. Pt and peers broke into smaller group and worked together to bust the myths associated with self-care. Pt?s group worked on myths of self-care means avoiding responsibilities, self-care is weakness, and self-care is just basic needs. Benefited from increased awareness of the self-care and its benefits. Progress noted in pt?s increased resilience when pt experiences a setback. ?Will continue in IOP to promote mood stability, improve self-compassion, and reduce negative self-talk. Narrative Note: []
--- NOTE | 2022-10-14 11:10 | BH.SGPN.GN ---
Behaviors/Verbalizations/Mental Status: []Pt alert and oriented, casually dressed and groomed. Eye contact fair. Motor activity appropriate. Speech within normal limits. Affect constricted, mood dysthymic. Thoughts linear, logical, no signs of hallucinations or delusions. Client Response/Progress/Benefit: []Pt engaged participant AEB completing self-assessment worksheet and providing some input throughout discussion. Participated in group discussion on the various areas of self-care. Pt completed worksheet identifying current self-care practices and what self-care activities pt wants to start using. Pt selected psychological self-care to begin practicing more consistently. Pt plans to do this by taking time off her phone and becoming okay with silence. Appeared to benefit from completing the self-care evaluation and gaining insights into current self-care practices, as well as identifying areas in which she would like to improve upon. Will continue IOP tx to challenge negative perspective, increase use of healthy coping skills, and prevent decompensation.
--- NOTE | 2022-10-18 09:13 | BH.MDN ---
Multi-Disciplinary Note - Note 45-min Individual Time Started:: 09:08 Date: 10/18/22 Purpose of session/treatment goals addressed:: To work on goal #1 of pt's tx plan. Eye Contact:: Good Motor Activity:: Appropriate Appearance:: Neat, Casual Speech:: Appropriate, Soft Mood:: Depressed Affect:: Congruent Thoughts:: Linear, Logical, No evidence of hallucinations/delusions noted Staff Interventions:: thought challenging, motivational interviewing, goal setting, other - reviewed maintenance cycles and behavior activation skills Client Response:: Pt responded well to session, open to meeting therapist. Pt shared ?things aren?t going great? and discussed recent increase in depressive sx. Shared that this is partially due to ongoing familial stress and pt isolating in order to avoid interacting with her parents. Discussed that she struggles with having a hopeful or positive perspective when her current reality feels discouraging. Receptive of identifying aspects of her reality she feels content in and enjoys. Identified the relationship with her boyfriend, her cat, as well as her goals for the future and current college work aiding in reaching those goals. Insight that when pt has intrusive negative thoughts of ?I want to ? or ?I?m not meant to be here she tends to fixate on these and tell herself the thoughts are true, which in turn reinforces her depression. Shared ?I feel I feed into them?. Receptive of reviewing maintenance cycles and discussing strategies for reducing focus on intrusive thoughts. Shared that continuing with what she was doing or finding something hands on to focus on may be helpful. Noted liking the idea of making her current environment feel more positive and enjoyable as she has not yet followed-through with this goal. Identified that she can work on keeping a daily accomplishment log to review when she is struggling with identifying her progress on her own. Risks/Concerns:: Pt denies active suicidal ideations, plan, or intent as of 10/18/22. Does report increased intrusive thoughts of ?I shouldn?t be alive?. However, denies urges or intent to act on these thoughts. Future oriented and protective factors noted. Progress Toward Goals/Plan:: Progress remains variable and continues to be impacted by pt current home environment. Noted ongoing anxiety and depression associated with familial stressors. Able to recognize what is in her control to improve overall ability to tolerate and continue to improve her own mental health and functioning in the environment. Self-reports inconsistent skill application and medication compliance which impedes tx progress as well. Willing to set small behavior activation goals. Will continue tx to improve consistency of skill application, reduce depression, and prevent decompensation. Time Stopped:: 10:00
--- NOTE | 2022-10-18 10:10 | BH.SGPN.GN ---
Behaviors/Verbalizations/Mental Status: []Eye contact is good. Motor activity is appropriate. Appearance is casual and grooming tended to. Speech is Appropriate. Mood is anxious, dysthymic. Affect is congruent. Thoughts are linear and logical. No evidence of psychosis. Client Response/Progress/Benefit: []Client receptive of session, semi-engaged throughout AEB taking notes and at times providing input and examples to discussion. Appeared to connect with group topic of cognitive distortions and the impact of thought patterns on mental health, coping behaviors, and relationships. Client shared she could connect with all or nothing thinking. Client shared she will have a thought If I make a mistake at work, everyone will think I'm dumb. Client seemed to benefit from increased awareness of distorted thoughts and impact distortions can have on mental health. Will continue IOP tx to increase consistent use of healthy coping skills, challenge distortions, and prevent decompensation.
--- NOTE | 2022-10-18 11:10 | BH.SGPN.GN ---
Behaviors/Verbalizations/Mental Status: []Eye contact is fair to good. Motor activity is appropriate. Appearance is casual. Speech is Appropriate. Mood is anxious and dysthymic. Affect is congruent. Thoughts are linear and logical. No evidence of psychosis. Client Response/Progress/Benefit: []Pt was an active participant in the group activity which involved working with peers to answer questions related to psychoeducation on cognitive distortions. Questions were posed in the fashion of Jeopardy and the categories included; Identifying the Cognitive Distortion, Ways to reframe cognitive distortions, Examples of cognitive distortions, and other areas related to cognitive distortions. This was an engaging way to help reinforce psychoeducation and to help client retain the information through examples and practicing. Pt was engaged in the game and with peers on collaborating to determine the answers. Identified one take away from the group as ?being able to better identify negative thoughts and the potential distortion being used in order to better try and rationalize them?. Benefited from rehearsing ways to challenge/reframe cognitive distortions and by gaining increased insight into examples/definitions of 10 most common cognitive distortions. Will continue in IOP to maintain gains and prevent decompensation. Narrative Note: []
--- NOTE | 2022-10-20 09:10 | BH.SGPN.GN ---
Behaviors/Verbalizations/Mental Status: []Eye contact fair to good, casually dressed, motor activity appropriate, speech normal rate and tone, mood anxious, constricted affect, thoughts linear and intact, no evidence of delusions or hallucinations. Reviewed pt's symptom tracker, reports suicidal ideation within pt baseline and denies active plan or intent as of this date 10/20/22. Client Response/Progress/Benefit: []Pt responded well to session, attentive and providing supportive feedback throughout. Pt reports feeling anxious and disconnected this morning as she has a test for work coming up tomorrow. Identified this as a current stressor, explaining that studying is often difficult for her. Receptive of suggestions on studying practices and tricks from fellow participants. Shared plans to get her favorite coffee, put on some music, and use opposite action to get started on studying this afternoon. Pt did well to identify current mental health wins which included beginning a bullet journal and asking a support for help with her car. Appeared to benefit from group discussion and supportive environment. Recommended continued IOP tx to continue to improve consistency of healthy skill application, promote mood stability, as well as prevent decompensation. Narrative Note: []
--- NOTE | 2022-10-20 10:10 | BH.SGPN.GN ---
Behaviors/Verbalizations/Mental Status: []Eye contact is fair. Motor activity is appropriate. Appearance is casual. Speech is Appropriate. Mood is anxious. Affect is constricted. Thoughts are linear and logical. No evidence of psychosis. Client Response/Progress/Benefit: []Pt was a passive participant in group discussion. Attentive during psychoeducation on different types of anxiety disorders. Peers provided insight on the definition of anxiety as well as the impact of anxiety which include; not functioning, isolating at home, lack of personal growth, and avoidance. Pt identified her physical symptoms of anxiety which were freezing, shaking, and increased heart rate. Pt identified personal safety behaviors include going on the phone to avoid, reassurance seeks, and not responding to voicemails. Benefited from increased insight and awareness from group discussions. Pt is to continue IOP to reduce avoidance, increase use of healthy coping skills, and improve daily functioning. Narrative Note: []
--- NOTE | 2022-10-20 11:10 | BH.SGPN.GN ---
Behaviors/Verbalizations/Mental Status: []Client alert and oriented, casually dressed and groomed. Eye contact fair. Motor activity appropriate. Speech within normal limits. Affect constricted, mood dysthymic. Thoughts linear, logical, no signs of hallucinations or delusions. Client Response/Progress/Benefit: []Client was a active participant in group discussion AEB providing contributions throughout group and listening attentively to others. Client able to connect how current safety behaviors are reinforcing anxiety. Attentive during psychoeducation on anxiety management skills. The group practiced belly breathing and chair yoga in session. Engaged and attentive during group brainstorm of healthy anxiety reduction skills. Appeared to benefit from practicing in the moment coping skills and increasing repertoire of anxiety management skills. Client will continue IOP tx to increase consistent use of healthy coping skills, challenge negative perspective, and prevent decompensation.
--- NOTE | 2022-10-27 09:10 | BH.MDN ---
Multi-Disciplinary Note - Note 60-min Individual Time Started:: 09:02 Date: 10/27/22 Purpose of session/treatment goals addressed:: To work on goal #1 of pt's tx plan. Eye Contact:: Good Motor Activity:: Appropriate Appearance:: Casual Speech:: Appropriate Mood:: Depressed Affect:: Congruent Thoughts:: Linear, Logical, No evidence of hallucinations/delusions noted Staff Interventions:: thought challenging, motivational interviewing, CBT techniques, discharge planning, goal setting Client Response:: Pt receptive of meeting with therapist, engaged throughout session. Reports missing last two scheduled sessions of treatment due to ?not feeling like getting up? in the morning. Explained that she had a busy weekend and was still trying to recoup. 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 Pt acknowledged that her mental health continues to struggle due to her inconsistency in applying behavior activation skills, lack of self-care, and continued isolation. Pt noted wanting to feel more connected with others, but continues to struggle to reach out. Did well to identify small goals for reaching out and expressed plans to ask a coworker to go to support another one of their coworkers in a musical coming up. Able to challenge anxious thoughts about doing so, as well as identify potential benefits. Pt noted she continues to experience regular distorted thinking patterns and would like to improve upon her ability to consistently identify and challenge these. Worked with therapist to review thought challenge strategies and identify skills she can use to continue to promote consistent skill application. Pt identified wanted to create a more structured daily routine to aid in improving accountability. Risks/Concerns:: Pt denies active suicidal ideations, plan, or intent as of 10/27/22. Continues to report intrusive thoughts of ?I shouldn?t be alive?. However, continues to deny urges or intent to act on these thoughts. Future oriented and protective factors noted. Progress Toward Goals/Plan:: Progress remains variable and continues to be impacted by pt current home environment and pt self-reports of limited motivation impeding consistent skill application. Noted depression associated with familial stressors and continued use of avoidance and isolation. Able to recognize what is in her control to improve overall mood and discussed plans to reach out to supports, as well as create a more concrete self-care schedule, Willing to schedule aftercare appointments with [facility] to re-establish outpatient therapy, appointment scheduled for 1:30om on 11/04/22. Reports improved consistency with medication compliance. Will continue tx to continue to improve consistency of skill application, reduce depression, and prevent decompensation. Time Stopped:: 09:58
--- NOTE | 2022-10-27 10:10 | BH.SGPN.GN ---
Behaviors/Verbalizations/Mental Status: []Client alert and oriented, casually dressed and groomed. Eye contact good. Motor activity appropriate. Speech within normal limits. Affect congruent, mood depressed. Thoughts linear, logical, no signs of hallucinations or delusions. Client Response/Progress/Benefit: []Client was an active participant in group discussions and activity. Attentive during psychoeducation. Client along with peers were able to identify several negatives on the picture given to the group. Client and peers also identified positives in the picture and made the connection that finding positives is much more difficult. Interactive discussion on the definition of perspective, how perspective is formed, and why perspective is important in treatment. Client along with peers also identified that perspective can either motivate and encourage treatment or become a barrier to receiving help. Client shared currently she has a more negative perspective towards life. Client stated current perspective has been impacted by her mood and external stressors. Will continue in IOP to continue use of healthy coping, increase willingness to ask for help and healthy communication with supports, and prevent decompensation. Narrative Note: []
--- NOTE | 2022-10-27 11:10 | BH.SGPN.GN ---
Behaviors/Verbalizations/Mental Status: []Pt alert and oriented, casually dressed and groomed. Eye contact fair. Motor activity appropriate. Speech within normal limits. Affect constricted, mood dysthymic. Thoughts linear, logical, no signs of hallucinations or delusions. Client Response/Progress/Benefit: []Pt was attentive and contributed in larger group discussion. Pt completed strengths exploration worksheet. Pt able to acknowledge how these strengths are helping pt and can continue to help pt in mental health journey. Reflected on how her honesty, curiosity, and patience have helped pt in the past and continue to help pt with her mental health. Pt worked with group to identify strategies that can help increase utilization of personal strengths. Benefited from identifying personal strengths and strategies for enhancing use of identified strengths. Pt to continue IOP tx to increase use of healthy coping skills, challenge distortions, and prevent decompensation.
--- NOTE | 2022-11-01 09:00 | BH.SGPN.GN ---
Behaviors/Verbalizations/Mental Status: []Pt alert and oriented, casually dressed and groomed. Eye contact good. Motor activity appropriate. Speech within normal limits. Affect flat, mood depressed. Thoughts linear, logical, no signs of hallucinations or delusions. Reviewed pt?s symptom tracker, no risk for suicidal ideation, plan, or intent as of 11/01/22 Client Response/Progress/Benefit: []Pt responded well to session, attentive and receptive to feedback. Pt reports feeling up and down this morning. Pt shared she sees that things are improving and pt had a good weekend overall, but pt admits that her depression won't let me go. Pt reports that when things start to go well it's like my brain says nope we can't not feel depressed. Pt also shared that she has been missing her brother (who three years ago) lately. Pt recognizes that when she feels depressed she wants to withdraw from her boyfriend and the group encouraged pt not to do this. Pt appeared to benefit from connecting with peers. Pt will continue IOP tx to reinforce healthy coping skills and improve mood stability. Narrative Note: []
--- NOTE | 2022-11-01 10:10 | BH.SGPN.GN ---
Behaviors/Verbalizations/Mental Status: [] Eye contact is good. Motor activity is appropriate. Appearance is casual. Speech is Appropriate. Mood is euthymic. Affect is congruent. Thoughts are linear and logical. No evidence of psychosis. Client Response/Progress/Benefit: [] Client was an active participant during interactive group discussions. Attentive during psychoeducation on the six types of boundaries (physical, emotional, intellectual, sexual, time, and material) AEB note-taking. Client along with peers contributed to interactive discussion on defining what a boundary is in mental health. Group identified challenges to setting boundaries which included; fear of other's response, not knowing how to set a boundary, fear of rejection, fear of disappointing the other person, historic patterns, etc. Group identified the benefits to setting boundaries such as to help maintain identity, increased control, minimize negative influences, and increased confidence . Group and client discussed the mental health benefits to establishing boundaries at work, school, and home. Client benefited from increased awareness and insight on the importance/benefit to setting health boundaries. Will continue in IOP to increase self worth, improve overall functioning and prevent decompensation. Narrative Note: [] Behaviors/Verbalizations/Mental Status: [] Eye contact is good. Motor activity is appropriate. Appearance is casual. Speech is Appropriate. Mood is euthymic. Affect is congruent. Thoughts are linear and logical. No evidence of psychosis. Client Response/Progress/Benefit: [] Client was an active participant during interactive group discussions. Attentive during psychoeducation on the six types of boundaries (physical, emotional, intellectual, sexual, time, and material) AEB note-taking. Client along with peers contributed to interactive discussion on defining what a boundary is in mental health. Group identified challenges to setting boundaries which included; fear of other's response, not knowing how to set a boundary, fear of rejection, fear of disappointing the other person, historic patterns, etc. Group identified the benefits to setting boundaries such as to help maintain identity, increased control, minimize negative influences, and increased confidence . Group and client discussed the mental health benefits to establishing boundaries at work, school, and home. Client benefited from increased awareness and insight on the importance/benefit to setting health boundaries. Will continue in IOP to increase self worth, improve overall functioning and prevent decompensation. Narrative Note: []
--- NOTE | 2022-11-01 11:15 | BH.SGPN.GN ---
Behaviors/Verbalizations/Mental Status: [] Client alert and oriented, casually dressed and appropriately groomed. Eye contact good. Motor activity WNL. Speech within normal limits. Affect congruent, mood euthymic. Thoughts linear and intact. no signs of delusions or hallucinations. Client Response/Progress/Benefit: [] Client responded well to session AEB listening attentively to peers, providing input, as well as taking notes throughout. Client contributed throughout psychoeducation on different boundary setting styles with reporting connecting most with either using porous or rigid style of boundary setting. Participated in group discussion brainstorming various strategies for improving healthy boundary setting. Client reports wanting to minimize and stop excessive apologizing and taking unwarranted blame. Seemed to benefit from increased awareness of how different boundary styles can impact mental health. Will continue IOP tx to increase consistent application of skills and improve overall functioning. Narrative Note: []
--- NOTE | 2022-11-04 09:00 | BH.SGPN.GN ---
Behaviors/Verbalizations/Mental Status: []Pt alert and oriented, casually dressed and groomed. Eye contact good. Motor activity appropriate. Speech within normal limits. Affect constricted, mood anxious. Thoughts linear, logical, no signs of hallucinations or delusions. Reviewed pt?s symptom tracker, no risk for suicidal ideation, plan, or intent as of 11/04/22 Client Response/Progress/Benefit: []Pt responded well to session, attentive and receptive to feedback. Pt reports feeling nervous this morning as she is finishing IOP tx. Pt stated that she is struggling with being okay but she is trying to challenge her anxious thoughts and remind herself that my thoughts might not be accurate. Pt shared she had fun with her boyfriend at an indoor water park and pt was not freaking out about my body which was a big win for pt. Pt appeared to benefit from reflecting on positives and attempting to challenge distortions. Pt will discharge from IOP tx today. Narrative Note: []
--- NOTE | 2022-11-04 09:50 | BH.AFTERPLAN ---
Aftercare Plan - Demographics Treatment End Date:: 11/04/22 Psychiatrist:: Karen Domínguez Psychiatrist Office #:: [phone] [facility] Therapist:: Chelsey Licona Therapist Phone #:: [phone] - Plan Details Progress/Aftercare Plan Details:: Client responded mostly well to treatment when applying skills learned and made progress while in [facility]. Client?s overall symptoms decreased by 12% per the DSM-5. Client?s depression decreased by 25%, thoughts of hurting herself decreased by 33%, irritability by 33%, and anxiety decreased by 11%. Client was an active group member AEB taking notes throughout session and providing input when prompted, had mostly consistent attendance though did miss due to oversleeping on a few occasion, and reported inconsistent but improved application of coping skills. Client was receptive during individual sessions and willing to challenge her perspective. Client developed many healthy coping skills including boundary setting, opposite action, thought challenging, and self-care though would benefit from continuing to work on improving consistency of application. Strategies for Success:: 1. Challenge those negative thoughts! Reminders: you can be making progress AND struggle, you are enough AND you can improve yourself, things can feel hard AND be getting better. 2. Self-care such as taking baths, reading, and doing a nails 3. Check in with yourself and take care of those emotions, don?t wait for them to take over you. 4. Boundaries!! Keep up those boundaries. Remember boundaries teach others how to treat us and keep us safe. 5. Positive self-talk and affirmations. 6. Opposite action! Don?t let depression or anxiety make the decisions. 7. Maintenance! Keep up with what has worked. 8. Give yourself credit! - Appointments Appointments/Referrals to Other Services:: Client will follow up with her outpatient providers at the [facility] for medication management and [facility] for individual outpatient therapy. Client has an appointment at [facility] on 11/04 at 1:30pm and next psychiatry appointment in December. Client was offered to participate in [facility] aftercare which will begin next week on 11/11/22. - Medications Home Medications: Home Medications bupropion HCl 150 mg 24 hr tablet, extended release (Wellbutrin XL) 150 mg PO DAILY 09/15/22 levothyroxine 100 mcg tablet 100 mcg PO DAILY 09/15/22 sertraline 50 mg tablet (Zoloft) 50 mg PO DAILY 09/15/22 ergocalciferol (vitamin D2) 1,250 mcg (50,000 unit) capsule (Vitamin D2) 50,000 unit PO QWEEK 09/22/22
--- NOTE | 2022-11-04 09:51 | BH.DS_ITS ---
Discharge Summary - Demographics Date of Admission:: 09/14/22 Discharge Date: 11/04/22 Presenting Problems at Admission:: The patient is a 21-year-old female with a history of depression and anxiety who was referred to [facility] behavioral health IOP program by her outpatient counselor for worsening symptoms of depression and daily suicidal ideation. Denies active SI, plan, or intent and reports thoughts as mostly ambivalence to living/not seeing the point in living. 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 The patient is currently attending [employer] part- time to get a degree in [employer], but is having trouble getting her homework done lately. Work, school, and the relationship with her parents are pt?s prim malik stressors. Reports her father is an alcoholic and verbally abusive which leads to pt isolating in the home. Patient states that she has struggled with intrusive existential anxious thoughts her whole life. Reports difficulties with rejection or disappointing others, and stated that if someone is upset or angry with her, she immediately thinks about killing myself. At time of intake pt endorses a sad mood with occasional crying. She endorses hopelessness, worthlessness, guilt, anhedonia, fatigue and increased sleep, low energy, decreased concentration, worries constantly that no one likes her, passive thoughts that she would not care if she that occur daily. She denies homicidal ideation, hallucinations, delusions or symptoms of dayna ever. She has a history of purging by laxative use 2 years ago but only did this 1 time. She denies any other eating disorder. Denies OCD, seizure or trauma. Pt reports current sx are impacting her ability to function socially, occupationally, and academically, as well as impacting her relationships and medication management. Discharge Diagnoses:: 1. Major depressive disorder, recurrent, severe without psychosis. 2. Dysthymia. 3. Generalized anxiety disorders Reason for Discharge:: Client has accomplished her treatment goals AEB overall symptom reduction and self-report of improved ability to apply healthy coping skills. Client no longer meets criteria for IOP tx and will transition to outpatient counseling. - Treatment Progress During Treatment & Response: Client responded mostly well to treatment when applying skills learned and made progress while in IOP. Client?s overall symptoms decreased by 12% per the DSM-5. Client?s depression decreased by 25%, thoughts of hurting herself decreased by 33%, irritability by 33%, and anxiety decreased by 11%. Client was an active group member AEB taking notes throughout session and providing input when prompted, had mostly consistent attendance though did miss due to oversleeping on a few occasion, and reported inconsistent but improved application of coping skills. Client was receptive during individual sessions and willing to challenge her perspective. Client developed many healthy coping skills including boundary setting, opposite action, thought challenging, and self-care though would benefit from continuing to work on improving consistency of application. Issues Still to be Addressed:: Client can continue to benefit from outpatient counseling to promote mood stability and gains made in IOP. Client can continue to work on setting healthy boundaries with family, challenging distorted thought patterns, and continuing to avoid unhealthy coping skills. Discharge Recommendations/Instructions:: Client will follow up with her outpatient providers at the [facility] for medication management and [facility] for individual outpatient therapy. Client has an appointment at [facility] on 11/04 at 1:30pm and next psychiatry appointment in December. Client was offered to participate in IOP aftercare which will begin next week on 11/11/22. Discharge Handout: Complete Discharge Handout with client on aftercare options and continuity of care.
--- NOTE | 2022-11-04 10:00 | BH.SGPN.GN ---
Behaviors/Verbalizations/Mental Status: []Pt alert and oriented, casually dressed and appropriately groomed. Eye contact good. Motor activity appropriate. Speech within normal limits. Affect congruent, mood anxious, dysthymic. Thoughts linear, logical, no signs of hallucinations or delusions. Client Response/Progress/Benefit: []Pt was an engaged participant AEB providing input, listening to others, and taking notes. Participated in interactive group discussion on internal and external barriers to mental health progress. Pt described current reality as struggling with depression and feeling trapped by her negative perspective, but able to start to see ways to challenge and reframe her thoughts. Reported desired reality is being able to feel less trapped and more capable of managing her mental health symptoms with a more positive outlook. Client shared personal barriers to desired realty include: inconsistency, introvertedness, low motivation, and negative thinking. Benefited from increased awareness of current barriers to progress as well as current/desired realities. Pt to d/c from IOP tx given maximum benefit reached and will continue IOP to improve consistency of skill application, challenge negative thoughts and prevent decompensation. Narrative Note: [] Behaviors/Verbalizations/Mental Status: []Pt alert and oriented, casually dressed and appropriately groomed. Eye contact good. Motor activity appropriate. Speech within normal limits. Affect congruent, mood anxious, dysthymic. Thoughts linear, logical, no signs of hallucinations or delusions. Client Response/Progress/Benefit: []Pt was an engaged participant AEB providing input, listening to others, and taking notes. Participated in interactive group discussion on internal and external barriers to mental health progress. Pt described current reality as struggling with depression and feeling trapped by her negative perspective, but able to start to see ways to challenge and reframe her thoughts. Reported desired reality is being able to feel less trapped and more capable of managing her mental health symptoms with a more positive outlook. Client shared personal barriers to desired realty include: inconsistency, introvertedness, low motivation, and negative thinking. Benefited from increased awareness of current barriers to progress as well as current/desired realities. Pt to d/c from IOP tx given maximum benefit reached and will continue IOP to improve consistency of skill application, challenge negative thoughts and prevent decompensation. Narrative Note: []
--- NOTE | 2022-11-04 11:00 | BH.SGPN.GN ---
Behaviors/Verbalizations/Mental Status: []Pt alert and oriented, casually dressed and groomed. Eye contact good. Motor activity appropriate. Speech within normal limits. Affect congruent, mood dysthymic and anxious. Thoughts linear, logical, no signs of hallucinations or delusions. Client Response/Progress/Benefit: [] Pt engaged during activity, providing input throughout session and contributed as group brainstormed ideas on how to cope with internal barriers that keep pts stuck from moving towards goals. Able to identify barriers to desired reality. Identified barriers to current reality to include: negative thinking, low motivation, inconsistency, and anxiety. Pt wants to work on overcoming the barrier of negative thinking by using practicing more consistent self-care to ensure that her basic needs are being met. Benefited from group by identifying obstacles and solutions to desired reality.? Pt will continue with individual outpatient tx to increase mood stability, promote consistent skill application, and prevent decompensation. Narrative Note: [] Behaviors/Verbalizations/Mental Status: []Pt alert and oriented, casually dressed and groomed. Eye contact good. Motor activity appropriate. Speech within normal limits. Affect congruent, mood dysthymic and anxious. Thoughts linear, logical, no signs of hallucinations or delusions. Client Response/Progress/Benefit: [] Pt engaged during activity, providing input throughout session and contributed as group brainstormed ideas on how to cope with internal barriers that keep pts stuck from moving towards goals. Able to identify barriers to desired reality. Identified barriers to current reality to include: negative thinking, low motivation, inconsistency, and anxiety. Pt wants to work on overcoming the barrier of negative thinking by using practicing more consistent self-care to ensure that her basic needs are being met. Benefited from group by identifying obstacles and solutions to desired reality.? Pt will continue with individual outpatient tx to increase mood stability, promote consistent skill application, and prevent decompensation. Narrative Note: []
--- NOTE | 2022-11-04 13:15 | BH.COMM_ITS ---
Communication Note - Communication with Client Communication Note: Pt unable to meet for full session as she is meeting with her new individual outpatient counselor at [facility] to re-establish care. Pt met briefly to discuss treatment progress, review strategies for continued maintenance and address current stressors, as well as review specific aftercare plans. Pt reports improved insight and ability to challenge her perspective, as well as feeling more capable of not engaging in conflict with her father. Pt discussed that her father's ongoing alcohol use continues to be a source of tension and anxiety for pt. Willing to discuss skills she continue to use to prevent engaging when he is intoxicated, as well as create a safety plan and escape strategy for pt should she feel unsafe in the home at any time. Pt reports she is able to leave and stay with her boyfriend or a friend from high school if needed. Boyfriends parents are aware of the situation and supportive. Reports she is not currently concerned about her safety but feels more comfortable having a clear plan. Plans to continue to address these these concerns in individual counseling . Additionally, pt plans to begin the weekly aftercare program starting next week at [facility]. [facility]
== END 2022-11-04 14:00 | disposition home or self-care (01) ==
LOC: BHIOP 07:30
PROVIDERS: PCP Family Medicine; Referring Provider Psychiatry & Neurology Psychiatry; Visit Provider Psychiatry & Neurology Psychiatry
DX: F33.2 Major depressive disorder, recurrent severe without psychotic features (principal); F41.1 Generalized anxiety disorder; Z79.899 Other long term (current) drug therapy; E03.9 Hypothyroidism, unspecified; Z91.14 Patient's other noncompliance with medication regimen
CPT/HCPCS: 99213; H2012; H2020; S9480; 90834; 90837

== ENCOUNTER 2022-11-25 08:00 | Outpatient (RCR) | payer MEDICAID, SELFPAY ==
--- NOTE | 2022-11-25 14:00 | BH.COMM ---
Communication Note - Communication with Client Communication Note: Presented completed IOP and presents today to starting relapse prevention group which meets once weekly (1.5 hours) for 8 weeks. Case discussed with Dr. Wong with plan to admit with dx of F33.2
--- NOTE | 2022-11-25 14:00 | BH.SGPN.GN ---
Behaviors/Verbalizations/Mental Status: []Client alert and oriented, casually dressed and groomed. Eye contact good. Motor activity appropriate. Speech within normal limits. Affect congruent, mood euthymic and anxious. Thoughts linear, logical, no signs of hallucinations or delusions. Client Response/Progress/Benefit: []Receptive of session, reports feeling ?antsy? today and believes this is due to plans to hangout with a friend this afternoon. Reports she has not yet met with a new therapist but is still in the process of [facility] Pt has been attending psychiatry appointments but continues to report difficulties with medication compliance. Insight into the importance of consistent compliance on maintaining gains and continuing to improve her physical and mental health. Receptive of supportive feedback from group. Reports use of positive self-talk and continuing to remove herself from unhealthy/toxic environments. Engaged and attentive during discussion of vulnerability and benefits of practicing vulnerability. Shared being vulnerable has not been easy for her as she has feared embarrassment or judgement from others. Group discussed ways we avoid feeling vulnerable and how this negatively affects mental health and relationships. Appeared to benefit from group support and discussion reflecting on the positive impact vulnerability can have on mental health. Identified plans to challenge herself to speak up more at work when interacting with coworkers as a way in which she could practice being vulnerable in the next week. Will continue IOP aftercare to promote gains and reinforce healthy coping skills. Narrative Note: []
--- NOTE | 2022-11-25 15:02 | BH.MTP ---
Master Treatment Plan - Patient Information Program Physician:: Dr. Karen Wong Primary Therapist:: DWAYNE Mccallum - Psychiatric Diagnoses Psychiatric Diagnoses:: 1. Major depressive disorder, recurrent, severe without psychosis. 2. Dysthymia. 3. Generalized anxiety disorders Diagnosis Code(s):: F 33.2 - Estimated LOS Estimated LOS (in weeks):: 8 Problem/Goal #1 - Problem/Goal #1 Stated Goal:: Client will maintain or see a reduction in symptoms AEB client score on the DSM 5 cross-cutting measure and improve client's daily functioning. - Objectives Objective #1 Stated Objective: Client will continue to consistently apply healthy coping skills to maintain progress made in IOP tx. Interventions: Through group therapy, client will review warning signs and triggers as well as healthy coping skills learned in IOP tx to successfully maintain gains while transitioning into outpatient therapy. Discharge Criteria: Client will have accomplished this goal when client's score on the DSM-5 cross-cutting measure has either maintained or reduced over an 8 week period. Target Date: 01/20/23 Review Date: 12/23/22 Objective #2 Stated Objective: Client will learn and utilize 2-3 maintenance strategies to prevent decompensation from original IOP DSM-5 scores. Interventions: Through group therapy, client will be provided with education on healthy maintenance behaviors, relapse prevention techniques, and healthy coping strategies. Discharge Criteria: Client will have accomplished this goal when can report using at least 2 maintenance skills to prevent decompensation compared to original IOP DSM-5 scores Target Date: 01/20/23 Review Date: 12/23/22
--- NOTE | 2022-12-03 14:00 | BH.SGPN.GN ---
Behaviors/Verbalizations/Mental Status: []Pt alert and oriented, casually dressed and groomed. Eye fair. Motor activity appropriate. Speech within normal limits. Affect flat. Mood irritable. Thoughts linear, logical, no signs of hallucinations or delusions. Client Response/Progress/Benefit: []Pt less engaged compared to previous session, however did appear to listen attentively to others.. Pt stated she has not seen her therapist because she didn't like the new counselor so hasn't gone back. Pt stated over the last week she has been feeling more irritable. Pt reported increased irritability could be associated with change in control pills. Therapist encouraged pt to go to OBGYN if irritability continues. Pt responded well to the discussion of gratitude and the benefits to mental health and relationships. Pt identified different things to focus on each day for the next 7 days to practice gratitude towards self and others. Pt shared she will practice reflecting on smell she loves, something looking forward to, and something that inspires her to practice gratitude over the next week. Pt recommended ongoing IOP aftercare to promote gains made in IOP and reinforce healthy coping skills.
== END 2022-12-07 23:59 ==
LOC: BHOG 08:00
PROVIDERS: PCP Family Medicine; Referring Provider Psychiatry & Neurology Psychiatry; Visit Provider Psychiatry & Neurology Psychiatry
DX: F33.2 Major depressive disorder, recurrent severe without psychotic features (principal)
CPT/HCPCS: 90853

== ENCOUNTER 2022-12-08 06:35 | Outpatient (RCR) | payer MEDICAID, SELFPAY ==
--- NOTE | 2022-12-09 14:00 | BH.SGPN.GN ---
Behaviors/Verbalizations/Mental Status: []Pt alert and oriented, casually dressed and groomed. Eye contact fair. Motor activity appropriate. Speech within normal limits. Affect congruent, mood euthymic. Thoughts linear, logical, no signs of hallucinations or delusions. Client Response/Progress/Benefit: []Pt responded well to session AEB sharing and listening attentively to others. Pt reports she has not followed up with her therapist or psychiatrist this week and admits she has not been taking her medications consistently. Pt and a few other peers admitted that they have not been completing homework for aftercare or utilizing healthy coping skills consistently. This prompted a long discussion on accountability and therapist used motivational interviewing. Pt then became more engaged participated in group discussion defining affirmations and why they are important. Pt provided insight throughout clinician?s presentation of tips for writing personal affirmations. Pt wrote own affirmations, including ??It?s okay to be okay.? Pt appeared to benefit from increased knowledge of affirmation writing and increased self-awareness. Will continue aftercare treatment to reinforce healthy coping skills and promote gains. ? Narrative Note: []
--- NOTE | 2022-12-09 15:14 | BH.TPR ---
Treatment Plan Review Date of Admission:: 11/25/22 Date of Treatment Plan Review:: 12/09/22 Admitting Diagnoses:: 1. Major depressive disorder, recurrent, severe without psychosis. 2. Dysthymia. 3. Generalized anxiety disorders Current Diagnoses:: 1. Major depressive disorder, recurrent, severe without psychosis. 2. Dysthymia. 3. Generalized anxiety disorders Patient's Response to Treatment:: Pt?s response to treatment has been positive. She is engaged and pt has been consistent in attendance. When pt attends IOP she is an active participant and connects with peers, provided supportive feedback, and reports somewhat consistently applying skills learned, however pt struggles significantly with motivation and follow-through, despite displaying insight. Status of Current Problems and Symptoms: Per pt?s DSM-5 review, her symptoms have decreased by 10 points. Pt?s depression went from 8/8 at IOP admission to 7/8 at review and pt?s anxiety scores have decreased from 9/12 to 7/12 as well. Pt reports that continuing to challenge themselves to use opposite action, maintain boundaries with their parents, and set daily small goals has aided in overall sx reduction. Problem #1 Problem Name:: Pt will maintain or see a reduction in sx AEB client score on the DSM-5 Status of Goals:: Objective 1- complete. Pt?s DSM-5 scores have decreased by 10 percentage points since IOP tx admission. See ongoing problems/symptoms. Objective 2- in progress. Pt self-reports she was not as consistent with utilizing coping skills, but has been trying to get out of the house more, reach out to new/different supports and has been consistent with outpatient counseling. Team Recommendations:: Treatment tx recommendations pt continue IOP aftercare to prevent decompensation and increase consistent use of healthy coping skills. Treatment team also encourages pt to continue with outpatient therapy and psychiatry.
--- NOTE | 2022-12-23 14:00 | BH.SGPN.GN ---
Behaviors/Verbalizations/Mental Status: []Client alert and oriented, casual in appearance. Eye contact good. Motor activity appropriate. Speech within normal limits. Affect congruent. Mood euthymic and anxious. Thoughts linear, logical, no signs of hallucinations or delusions Client Response/Progress/Benefit: []Pt responded well to session AEB providing input throughout and listening attentively to others. Pt reported plans on meeting with outpatient counselor next week but is unsure of when and has a psychiatry appointment for next month. Reports taking medications as prescribed. Pt identified several coping skills she has been using over the past week to continue to manage mental health sx, which included: bullet journaling, thought challenging/reframing, and positive affirmations. Pt connected with self-reflection discussion. Worked with group to identify the benefits of self-reflection. Appeared to benefit from identifying how to incorporate self-reflection into daily life. Pt completed aftercare specific self-reflection activity and indicated she has seen improvements in her ability to consistently utilize positive self-talk when identifying negative thoughts but would like to continue to focus on making improvements in consistency. Willing to complete weekly self-reflection assignment for homework. Pt to continue aftercare to maintain gains and prevent decompensation. Narrative Note: []
--- NOTE | 2022-12-30 14:00 | BH.SGPN.GN ---
Behaviors/Verbalizations/Mental Status: []Pt alert and oriented, neatly dressed and groomed. Eye contact good. Motor activity appropriate. Speech within normal limits. Affect constricted, mood depressed. Thoughts linear, logical, no signs of hallucinations or delusions. Client Response/Progress/Benefit: []Pt responded well to session, pt reports she has not been seeing a therapist because she needs to find a ?new one.? Pt has been taking her medications consistently which is progress for pt. ?Pt reports she has not been using ?very healthy coping skills? but she did utilize a body scan recently. Pt engaged well during the discussion of the components of self-compassion. Pt connected with the benefits of self-compassion and participated in the activity of reframing a recent setback using self-compassion. Pt used self-compassion to combat negative self-talk and assisted peers in identifying examples of the three components of self-compassion.?Pt appeared to benefit from practicing self-compassion and connecting with peers. ?Pt continues to be encouraged to find a new outpatient therapist as pt has mentioned needing one for over a month. Will continue aftercare to promote mood stability and reinforce healthy coping skills.? Narrative Note: []
--- NOTE | 2023-01-06 14:00 | BH.SGPN.GN ---
Behaviors/Verbalizations/Mental Status: []Pt alert and oriented, casually dressed and groomed. Eye contact good. Motor activity appropriate. Speech within normal limits. Affect congruent, mood depressed. Thoughts linear, logical, no signs of hallucinations or delusions. Client Response/Progress/Benefit: []Pt responded well to session, attentive and engaged. Pt reports she has been taking her medications and she has been seeing a therapist, but she does not connect with this therapist. Pt reports I still haven't been coping the healthiest as pt reports she is using sleep to manage her stress and depression. Pt has been encouraged to utilize opposite action and start with small goals. Pt participated in discussion of personal values and why knowing these can be helpful to one's mental health. The group also discussed what could happen if one does not live according to their values. Pt identified her top two values as spirituality and mental health. Pt set a goal to text someone everyday that is not her boyfriend. Pt will continue IOP aftercare to promote mood stability and gains made in IOP. Narrative Note: []
--- NOTE | 2023-01-13 15:26 | BH.DS ---
Discharge Summary - Demographics Date of Admission:: 11/25/22 Discharge Date: 01/13/23 Presenting Problems at Admission:: Pt discharged from IOP tx and transitioned to IOP aftercare to maintain gains Pt made in IOP and to reinforce healthy coping skills. At admission to [facility] aftercare, pt continued to report some symptoms of depression, irritability, and anxiety, but of reduced intensity. Pt was also experiencing the stress of figuring out the next step for her future, family relationship issues, and ongoing occupational stress. Discharge Diagnoses:: 1. Major depressive disorder, recurrent, severe without psychosis. 2. Dysthymia. 3. Generalized anxiety disorders Reason for Discharge:: Pt successfully completed the 8 week aftercare program and will d/c to individual outpatient counseling services to maintain stability, promote skill application, and continue to address mental health sx. - Treatment Progress During Treatment & Response: Pt responded well and made progress in IOP aftercare as evidenced by pt's participation in group discussions and self-report of applying coping skills. Additionally, at discharge Pt was reporting consistently seeing her therapist (though was pursuing changing therapists due to feeling she did not connect with her therapist), using healthy coping skills, and practicing thought challenging. At discharge, pt was consistently attending work, making plans with friends, and discussed wanting to get back into gong to the gym. Pt also reported increased ability to manage triggers and negative thought patterns. Pt worked hard to improve her communication skills and her ability to manage her anxiety improved. Pt did struggle with motivation to consistently apply skills and often reported struggling with maintaining consistent with her medications which had a significant impact on energy and motivation levels. Issues Still to be Addressed:: Pt can continue to benefit from outpatient therapy, building distress tolerance skills, setting and maintaining healthy boundaries, emotional regulation skills, interpersonal relationship skills, and combating distorted thought patterns. Discharge Recommendations/Instructions:: Pt will continue seeing Mili at [facility] for medication management. Pt sees her outpatient therapist at [facility], however is in the process of switching therapists. Discharge Handout: Complete Discharge Handout with client on aftercare options and continuity of care.
== END 2023-01-07 23:59 ==
LOC: BHOG 06:35
PROVIDERS: PCP Family Medicine; Referring Provider Psychiatry & Neurology Psychiatry; Visit Provider Psychiatry & Neurology Psychiatry
DX: F33.2 Major depressive disorder, recurrent severe without psychotic features (principal); F41.1 Generalized anxiety disorder
CPT/HCPCS: 90853

== ENCOUNTER 2023-01-10 08:12 | Outpatient (RCR) | payer MEDICAID, SELFPAY ==
--- NOTE | 2023-01-13 13:30 | BH.DS ---
Discharge Summary - Demographics Date of Admission:: 11/25/22 Discharge Date: 01/13/23 Presenting Problems at Admission:: Pt discharged from IOP tx and transitioned to IOP aftercare to maintain gains Pt made in IOP and to reinforce healthy coping skills. At admission to [facility] aftercare, pt continued to report some symptoms of depression, irritability, and anxiety, but of reduced intensity. Pt was also experiencing the stress of figuring out the next step for her future, family relationship issues, and ongoing occupational stress. Discharge Diagnoses:: 1. Major depressive disorder, recurrent, severe without psychosis. 2. Dysthymia. 3. Generalized anxiety disorders Reason for Discharge:: Pt successfully completed the 8 week aftercare program and will d/c to individual outpatient counseling services to maintain stability, promote skill application, and continue to address mental health sx. - Treatment Progress During Treatment & Response: Pt responded well and made progress in IOP aftercare as evidenced by pt's participation in group discussions and self-report of applying coping skills. Additionally, at discharge Pt was reporting consistently seeing her therapist (though was pursuing changing therapists due to feeling she did not connect with her therapist), using healthy coping skills, and practicing thought challenging. At discharge, pt was consistently attending work, making plans with friends, and discussed wanting to get back into gong to the gym. Pt also reported increased ability to manage triggers and negative thought patterns. Pt worked hard to improve her communication skills and her ability to manage her anxiety improved. Pt did struggle with motivation to consistently apply skills and often reported struggling with maintaining consistent with her medications which had a significant impact on energy and motivation levels. Issues Still to be Addressed:: Pt can continue to benefit from outpatient therapy, building distress tolerance skills, setting and maintaining healthy boundaries, emotional regulation skills, interpersonal relationship skills, and combating distorted thought patterns. Discharge Recommendations/Instructions:: Pt will continue seeing Mili at [facility] for medication management. Pt sees her outpatient therapist at [facility], however is in the process of switching therapists. Discharge Handout: Complete Discharge Handout with client on aftercare options and continuity of care.
--- NOTE | 2023-01-13 14:00 | BH.SGPN.GN ---
Behaviors/Verbalizations/Mental Status: []Client alert and oriented, casually dressed and groomed. Eye contact good. Motor activity appropriate. Speech within normal limits. Affect congruent, mood anxious and dysthymic. Thoughts linear, logical, no signs of hallucinations or delusions. Client Response/Progress/Benefit: []Pt receptive of session, engaged throughout. Pt completed her aftercare self-reflection worksheet sharing they see a new therapist next week and is setting up an appointment for psychiatry. Pt states they are taking medications as prescribed and have been using opposite action and reaching out to supports as healthy coping skills. Shared however struggling with consistency in doing so. Receptive of discussion on healthy decision-making, what impacts making decisions, as well its importance in maintaining mental health stability. Pt worked cooperatively with group to identify benefits of developing and maintaining healthy choices, as well as brainstorming strategies for improving ability to do so. Reported she wants to work on making healthier decisions regarding her physical health and thyroid issues. Shared plans to reach out to her PCP to have her thyroid checked and discuss medication adjustments. Pt seemed to benefit from support from peers and increasing understanding of healthy habit formation benefits and strategies. Will d/c from aftercare and continue with individual outpatient treatment to maintain gains and prevent decompensation. Narrative Note: []
== END 2023-01-14 06:47 | disposition home or self-care (01) ==
LOC: BHOG 08:12
PROVIDERS: PCP Family Medicine; Referring Provider Psychiatry & Neurology Psychiatry; Visit Provider Psychiatry & Neurology Psychiatry
DX: F33.2 Major depressive disorder, recurrent severe without psychotic features (principal); F41.1 Generalized anxiety disorder
CPT/HCPCS: 90853

== ENCOUNTER 2024-01-04 18:34 | Emergency (ER) | payer MEDICAID, SELFPAY ==
[2024-01-04 18:34] VITALS: BP 141/92; PULSE 104; RESP 14; TEMP 36.6; O2SAT 100; BMI 26.9
--- NOTE | 2024-01-04 18:54 | EDS_ITS ---
HPI History of Present Illness HPI Narrative: Atraumatic right medial calf pain and possibly mild swelling. Chief Complaint: Lower Extremity Injury Informant: patient Occured/Mechanism Mechanism/Context: No injury and No blunt trauma Onset/Context/Timing Onset: Weeks Context: Gradual Onset Timing: Continuous Quality of Pain: Dull Current Severity: Mild Maximum Severity: Mild Associated Symptoms Associated Symptoms: Negative for Parasthesia, Weakness or Loss of Funtion Narrative Narrative: 23-year-old female past medical history of hypothyroidism and anemia. Set up several weeks ago she did workout on an incline treadmill. Since that time she has had intermittent right calf pain. And believes it might be a small amount of swelling. Patient is on 2 forms of control both an implant and oral contraceptive and is concerned that she might have a blood clot. No prior history of blood clot. No other risk factors. No travel, surgery or immobilization. No hemoptysis nor shortness of breath or chest pain. Prior similar symptoms: No Recent Illness/Hospitalization: No PFSH PFSH Medical History Dysthymia Generalized anxiety disorder Hypothyroid Major depressive disorder, recurrent severe without psychotic features Home Medications bupropion HCl 150 mg 24 hr tablet, extended release (Wellbutrin XL) 150 mg PO DAILY 09/15/22 [History Last Taken Unknown] levothyroxine 100 mcg tablet 100 mcg PO DAILY 09/15/22 [History Last Taken Unknown] sertraline 50 mg tablet (Zoloft) 50 mg PO DAILY 09/15/22 [History Last Taken Unknown] ergocalciferol (vitamin D2) 1,250 mcg (50,000 unit) capsule (Vitamin D2) 50,000 unit PO QWEEK 09/22/22 [History Last Taken Unknown] Allergy/AdvReac Type Severity Reaction Status Date / Time No Known Allergies Allergy Verified 01/04/24 18:38 Family History Unknown Diabetes Heart disease Thyroid disorder Social History Smoking Status: Never smoker alcohol intake: never ROS ROS ED ROS Narrative Denies recent illness other than COVID 1 to 2 weeks ago. Review of Systems ROS Unobtainable: Denies due to encephalopathy Constitutional Constitutional ED: Denies chills or fever(s) Eyes Eyes: Denies blurry vision ENT ENT ED: Denies ear pain Cardiovascular Cardiovascular: Denies chest pain Respiratory/Chest Respiratory/Chest: Denies cough or dyspnea Gastrointestinal Gastrointestinal: Denies abdominal pain Genitourinary Genitourinary ED: Denies dysuria or hematuria Musculoskeletal Musculoskeletal: Denies arthralgias or back pain Integumentary Denies abscess or Abrasions Neurologic Neurologic: Denies headache(s) Psychiatric Psychiatric: Denies anxiety or depression Endocrine Endocrinology: Denies polydipsia, polyphagia or polyuria Hematologic/Lymphatic Hematologic/Lymphatic: Denies easy bleeding or easy bruising Allergic/Immunologic Allergic/Immunologic ED: Denies mouth swelling, tongue swelling or urticaria EXAM Physical Exam Narrative Exam Narrative: Well-appearing 23-year-old female. Vital signs are stable afebrile. Pulse ox 100% on room air no signs hypoxia. HEENT exam unremarkable. Neck nontender. Lungs clear. Heart regular rhythm no murmur rate about 100. Abdomen soft nontender. Moving all 4 extremities. Neurovascular intact. Specifically the right leg appears normal. No significant swelling. No specific tenderness. There is no redness or warmth. She has normal flexion extension of both the right hip, knee and ankle. Dorsi and plantarflexion is intact. There is no cords. There is no calf edema. She has a normal DP pulse. She has no cellulitis and no inguinal lymphadenopathy. Otherwise exam normal. Const Vital Signs: 01/04/24 18:34 Temperature 97.9 F Temperature Source Temporal Pulse Rate 104 H Respiratory Rate 14 Blood Pressure 141/92 H Blood Pressure Mean 108 Pulse Ox 100 Oxygen Delivery Method Room Air Positive well nourished and well developed; Negative for cachectic, contractures or unkempt General Appearance ED: well developed and NAD; Negative for unkempt, cachectic or contractures Nutritional Appearance: Negative for cachectic HEENT Reports moist mucous membranes normocephalic and atraumatic; Negative for trauma or tenderness Eyes PERRL General Eye ED: Negative for other Neck supple Thyroid: Negative for tender Lymph Lymphatic: Negative for other Chest Wall inspection of chest normal and palpation of chest normal Chest: Negative for other Resp normal respiratory effort, no retractions and clear to auscultation bilaterally Effort and Inspection: Negative for pain with movement Auscultation: Negative for rales, rhonchi, wheezes or diminished lung sounds Cardio regular rate, regular rhythm, S1 normal heart sound, S2 normal heart sound and no murmurs Rate: Negative for bradycardia or tachycardic Rhythm: Negative for abnormal rhythm Bruits: Negative for other GI non-tender, non-distended and no masses Inspection: Negative for abdominal distention Auscultation: normoactive bowel sounds Palpation: soft; Negative for tender, guarding or rebound tenderness present Back/Spine no CVA tenderness General Back: Negative for CVA tenderness or swelling Cervical Spine: Negative for cervical spine tenderness Thoracic Spine / Upper Back: Negative for thoracic spinal tenderness Lumbar Spine / Lower Back: Negative for lumbar spinal tenderness Extremity normal to inspection and full ROM Extremity Narrative: Nontender. No edema. No cords. Neurovascular intact. Full range of motion. No inguinal lymphadenopathy. No redness or warmth. Normal dorsi plantarflexion. Normal DP pulse. General Extremety ED: Negative for cyanosis or edema General Extremity: Negative for cyanosis or edema Neuro oriented x3, CN's II-XII intact bilaterally, moves all extremities and no sensory deficits noted Sensorium / Orientation: alert, oriented to person, oriented to place and oriented to time; Negative for orientation impaired, confused or lethargic Motor Exam: strength 5/5 throughout Psych Appearance: Negative for unkempt Skin no wounds Lesions: no lesions Trauma: Negative for abrasion or laceration MDM MDM MDM Narrative Medical decision making narrative: 23-year-old female on control concern with right calf discomfort exam benign. Ultrasound being obtained to evaluate for possible DVT. Ultrasound the right lower extremity (venous duplex) shows no acute abnormality. No DVT. I discussed this with the patient. On repeat exam she is doing well at 735. She will be discharged home. Treated as a calf strain. Discharge Plan Triage Chief Complaint: Lower Extremity Injury ED Provider: Crispin Jimenez Dx/Rx/DC Orders Clinical Impression: Strain of right calf muscle Instructions: ED Muscle Strain, Extremity Prescriptions: No Action levothyroxine 100 mcg Tablet 100 mcg PO DAILY sertraline [Zoloft] 50 mg Tablet 50 mg PO DAILY bupropion HCl [Wellbutrin XL] 150 mg Tablet Extended Release 24 Hr 150 mg PO DAILY ergocalciferol (vitamin D2) [Vitamin D2] 1,250 mcg (50,000 unit) Capsule 50,000 unit PO QWEEK Primary [facility] 1 Week if not improving Activity Restrictions/Additional Instructions: Ultrasound showed no blood clot. This will be treated as a calf strain. Motrin for pain and inflammation and Tylenol for pain. This should progressively improve. Disposition Disposition: Home, Self Care
--- NOTE | 2024-01-04 19:12 | US_ITS ---
INDICATION: RT LEG SWELLING EXAMINATION: Ultrasound US Venous Duplex LE Unilat / Limited RIGHT TECHNIQUE: Christensen scale, pulse wave, and color flow Doppler imaging was performed of the lower extremity venous system. The right greater saphenous, common femoral, femoral, and popliteal veins were interrogated. COMPARISON: FINDINGS: Visualized veins from common femoral at the groin through the popliteal vein demonstrate appropriate flow characteristics, compressibility, and augmentation. No intraluminal thrombus identified. US/Venous Duplex Imag/Limited/Uni IMPRESSION: Negative for DVT. Electronically Signed: Sofia Felix MD at 23:57 EDT ,
[2024-01-04 19:58] VITALS: BP 138/87; PULSE 70; RESP 16; TEMP 37; O2SAT 100
[2024-01-04 20:03] VITALS: BP 138/87; PULSE 70; RESP 16; TEMP 37; O2SAT 100
== END 2024-01-04 20:04 | disposition home or self-care (01) ==
PROVIDERS: Emergency Provider Emergency Medicine; Visit Provider Emergency Medicine
DX: S86.111A Strain of other muscle(s) and tendon(s) of posterior muscle group at lower leg level, right leg, initial encounter (principal); E03.9 Hypothyroidism, unspecified; Z79.899 Other long term (current) drug therapy; F41.1 Generalized anxiety disorder; F33.9 Major depressive disorder, recurrent, unspecified; M79.661 Pain in right lower leg
CPT/HCPCS: 93971; 99282